=== PATIENT | male | born 1980 | race Caucasian/White ===

== ENCOUNTER 2016-12-15 14:01 | Emergency (ER) | payer OTHER ==
[~2016-12-15] VITALS: Ht 170.1 cm; Wt 122.5 kg
[~2016-12-15 14:01] MED LIST: ALBUTEROL0.09 MG/A2 INH; COMPAZINE10 MG PO; FLOMAX0.4 MG PO; LOMOTIL 0.025 M1 TA1 PO; MEDROL DOSEPAK4 MG PO; MOTRIN800 MG PO; NAPROSYN500 MG PO; PHENERGAN W/ DE30 ML PO; PREDNICOT10 MG PO; PREDNICOT20 MG PO; ROBITUSSIN DM120 ML PO; TESSALON PERLE200 MG PO; VICODIN 5-3001 EACH PO; ZANTAC150 MG PO; ZITHROMAX Z PA250 MG PO; Zofran4 MG PO
[2016-12-15] MEDS ORDERED: ULTRAM50 MG PO (15:47)
[2016-12-15] MEDS ORDERED: Motrin,Rufen800 MG PO (15:47)
== END 2016-12-15 15:50 | disposition home or self-care (01) ==
LOC: ED 14:01
DX: M25.461 Effusion, right knee (principal)

== ENCOUNTER 2017-06-11 05:38 | Emergency (ER) | payer OTHER ==
[~2017-06-11] VITALS: Ht 172.7 cm; Wt 122.5 kg
[~2017-06-11 05:38] MED LIST changes: +Motrin,Rufen800 MG PO; +ULTRAM50 MG PO
[2017-06-11] MEDS ORDERED: CHLORPROMAZINE25 M1 PO (06:15)
== END 2017-06-11 06:37 | disposition home or self-care (01) ==
LOC: ED 05:38
DX: R06.6 Hiccough (principal); Z88.8 Allergy status to other drugs, medicaments and biological substances

== ENCOUNTER 2019-06-05 23:53 | Emergency (ER) | payer OTHER ==
[~2019-06-05] VITALS: Ht 177.8 cm; Wt 122.5 kg
[~2019-06-05 23:53] MED LIST changes: +CHLORPROMAZINE25 M1 PO
[2019-06-05] MEDS ORDERED: PANTOPRAZOLE SO40 MG PO (23:56)
[2019-06-05] MEDS ORDERED: KETOROLAC10 MG PO (23:57)
[2019-06-05] MEDS ORDERED: NORCO 7.5-3251 EACH PO (23:57)
[2019-06-06 00:30] LABS: BASO % 0.5 % (0.0-1.0); EOS # 0.2 10*3/uL (0.0-0.4); EOS % 2.2 % (1.0-4.0); HEMOGLOBIN 12.7 g/dl (14.0-18.0); LYMPH % 22.8 % (27.0-41.0); MEAN CELL VOLUME 85.8 fl (80.0-94.0); MEAN CORPUSCULAR HGB 28.7 pg (27.0-31.0); MEAN CORPUSCULAR HGB CONC 33.4 g/dl (33.0-37.0); MEAN PLATELET VOLUME 9.5 fl (9.6-12.3); MONO # 0.9 10*3/uL (0.1-1.0); MONO % 10.7 % (3.0-9.0); NEUT # 5.4 10*3/uL (2.3-7.9); NEUT % 63.1 % (47.0-73.0); PLATELET COUNT AUTOMATED 194 10*3/uL (130-400); RED BLOOD COUNT 4.43 10*6/uL (4.50-5.90); RED CELL DISTRI WIDTH 12.3 % (0-14.5); WHITE BLOOD COUNT 8.6 10*3/uL (4.8-10.8)
[2019-06-06 00:31] LABS: BILIRUBIN 1+ (NEGATIVE); BLOOD 3+ (NEGATIVE); CLARITY CLOUDY (CLEAR); COLOR YELLOW (YELLOW); GLUCOSE NEGATIVE (NEGATIVE); KETONE NEGATIVE (NEGATIVE); LEUKO ESTERASE TRACE (NEGATIVE); NITRITE NEGATIVE (NEGATIVE); PH 5.5 (5.0-9.0); SPECIFIC GRAVITY 1.025 (1.005-1.030); UROBILINOGEN 0.2 E.U./dl (0.2-1.0)
[2019-06-06 00:37] LABS: BACTERIA 1+; RBC TNTC rbc/hpf (0-2); WBC 41-50 wbc/hpf (0-5)
[2019-06-06 00:46] LABS: ALBUMIN 3.4 gm/dl (3.1-4.5); CREATININE 1.91 mg/dL (0.70-1.30); POTASSIUM 3.6 mmol/L (3.5-5.1); TOTAL PROTEIN 7.6 gm/dL (6.4-8.2)
== END 2019-06-06 02:10 | disposition short-term general hospital (02) ==
LOC: ED 23:53
PROVIDERS: Physician Assistant
DX: N17.9 Acute kidney failure, unspecified (principal); N39.0 Urinary tract infection, site not specified; N20.0 Calculus of kidney; Z79.899 Other long term (current) drug therapy

== ENCOUNTER → 2019-07-18 | Outpatient (CLI) | payer OTHER ==
[~2019-07-18] MED LIST changes: +KETOROLAC10 MG PO; +NORCO 7.5-3251 EACH PO; +PANTOPRAZOLE SO40 MG PO
[2019-07-18 09:16] LABS: BASO # 0.1 10*3/uL (0.0-0.1); BASO % 0.7 % (0.0-1.0); EOS # 0.2 10*3/uL (0.0-0.4); EOS % 2.1 % (1.0-4.0); HEMOGLOBIN 15.1 g/dl (14.0-18.0); LYMPH % 24.4 % (27.0-41.0); MEAN CELL VOLUME 84.7 fl (80.0-94.0); MEAN CORPUSCULAR HGB 27.8 pg (27.0-31.0); MEAN CORPUSCULAR HGB CONC 32.8 g/dl (33.0-37.0); MONO # 0.7 10*3/uL (0.1-1.0); NEUT # 5.2 10*3/uL (2.3-7.9); NEUT % 63.2 % (47.0-73.0); PLATELET COUNT AUTOMATED 237 10*3/uL (130-400); RED BLOOD COUNT 5.43 10*6/uL (4.50-5.90); WHITE BLOOD COUNT 8.2 10*3/uL (4.8-10.8)
[2019-07-18 09:59] LABS: ALBUMIN 4.3 gm/dl (3.1-4.5); BUN 18 mg/dl (7-24); CHLORIDE 104 mmol/L (98-107); CREATININE 1.29 mg/dL (0.70-1.30); POTASSIUM 3.9 mmol/L (3.5-5.1); SGOT/AST 29 IU/L (3-35); SGPT/ALT 47 U/L (12-78); SODIUM 140 mmol/L (136-145); TOTAL PROTEIN 8.4 gm/dL (6.4-8.2)
[2019-07-18 10:00] LABS: ALKALINE PHOSPHATASE 70 U/L (45-117); T3 UPTAKE 36 % (31-39); THYROXINE (T4) TOTAL 8.4 ug/dl (4.5-12.1)
== END | disposition home or self-care (01) ==
LOC: LAB 07:45 → US 12:30
PROVIDERS: Urology
DX: N20.0 Calculus of kidney (principal)

== ENCOUNTER → 2019-07-20 | Outpatient (CLI) | payer OTHER ==
[2019-07-29 18:02] LABS: BUSHITE 1.21 ratio (0.00-3.00); CALCIUM, URINE 12.9 mg/dL (Not Estab.); CALCIUM, URINE 177.4 mg/24 hr (100.0-300.0); CITRIC ACID (CITRATE) 369 mg/24 hr (320-1240); CREATININE, URINE 188.7 mg/dL (Not Estab.); CREATININE, URINE 2594.6 mg/24 hr (1000.0-2000.0); MAGNESIUM, URINE 6.6 mg/dL (Not Estab.); MONOSODIUM URATE 10.45 ratio (0.00-4.00); OSMOLALITY, URINE 762 (300-900); SODIUM, URINE 178 mmol/L (Not Estab.); SODIUM, URINE 245 (58-337); STRUVITE 0.01 ratio (0.00-1.00); URIC ACID 4.69 ratio (0.00-1.20); pH 24 HR URINE 5.7 (.)
== END | disposition home or self-care (01) ==
LOC: LAB 12:50
PROVIDERS: Urology
DX: N20.0 Calculus of kidney (principal)

== ENCOUNTER → 2019-10-29 | Outpatient (CLI) | payer OTHER, MEDICAID ==
[2019-10-29 12:39] LABS: BASO # 0.1 10*3/uL (0.0-0.1); BASO % 0.6 % (0.0-1.0); EOS # 0.5 10*3/uL (0.0-0.4); EOS % 4.4 % (1.0-4.0); HEMATOCRIT 43.6 % (42.0-52.0); LYMPH # 2.1 10*3/uL (1.3-4.4); LYMPH % 17.9 % (27.0-41.0); MEAN CELL VOLUME 83.8 fl (80.0-94.0); MEAN CORPUSCULAR HGB 28.3 pg (27.0-31.0); MEAN CORPUSCULAR HGB CONC 33.7 g/dl (33.0-37.0); MEAN PLATELET VOLUME 9.6 fl (9.6-12.3); MONO # 1.1 10*3/uL (0.1-1.0); MONO % 9.6 % (3.0-9.0); NEUT # 7.9 10*3/uL (2.3-7.9); NEUT % 67.1 % (47.0-73.0); PLATELET COUNT AUTOMATED 275 10*3/uL (130-400); RED CELL DISTRI WIDTH 12.7 % (0-14.5); WHITE BLOOD COUNT 11.7 10*3/uL (4.8-10.8)
[2019-10-29 13:08] LABS: ALKALINE PHOSPHATASE 86 U/L (45-117); BUN 12 mg/dl (7-24); CHLORIDE 105 mmol/L (98-107); CREATININE 1.25 mg/dL (0.70-1.30); POTASSIUM 3.7 mmol/L (3.5-5.1); SGOT/AST 18 IU/L (3-35); SGPT/ALT 41 U/L (12-78); SODIUM 139 mmol/L (136-145); TOTAL PROTEIN 8.2 gm/dL (6.4-8.2); URIC ACID 9.1 mg/dL (3.5-7.2)
== END ==
LOC: LAB 12:17
PROVIDERS: Family Medicine
DX: M25.461 Effusion, right knee (principal)

== ENCOUNTER → 2024-02-15 | Outpatient (CLI) | payer OTHER ==
[2024-02-15 14:24] LABS: BASO # 0.1 10*3/uL (0.0-0.1); BASO % 0.8 % (0.0-1.0); EOS # 0.2 10*3/uL (0.0-0.4); EOS % 1.9 % (1.0-4.0); HEMATOCRIT 42.8 % (42.0-52.0); LYMPH # 2.2 10*3/uL (1.3-4.4); LYMPH % 24.1 % (27.0-41.0); MEAN CELL VOLUME 86.5 fl (80.0-94.0); MEAN CORPUSCULAR HGB 29.3 pg (27.0-31.0); MEAN CORPUSCULAR HGB CONC 33.9 g/dl (33.0-37.0); MEAN PLATELET VOLUME 9.3 fl (9.6-12.3); MONO # 0.8 10*3/uL (0.1-1.0); MONO % 8.2 % (3.0-9.0); NEUT % 64.6 % (47.0-73.0); PLATELET COUNT AUTOMATED 224 10*3/uL (130-400); RED BLOOD COUNT 4.95 10*6/uL (4.50-5.90); RED CELL DISTRI WIDTH 12.5 % (0-14.5); RETICULOCYTE % 1.76 % (0.50-2.50); WHITE BLOOD COUNT 9.3 10*3/uL (4.8-10.8)
[2024-02-15 14:46] LABS: URINE CREATININE RANDOM 243.99 mg/dL
[2024-02-15 15:15] LABS: ALKALINE PHOSPHATASE 71 U/L (46-116); BUN 15 mg/dl (9-23); CHLORIDE 103 mmol/L (98-107); POTASSIUM 3.9 mmol/L (3.4-5.1); SGPT/ALT 48 U/L (5-49); URIC ACID 7.9 mg/dL (3.7-9.2)
[2024-02-16 07:07] LABS: TOTAL PROTEIN, SERUM 7.4 g/dL (6.0-8.5)
[2024-02-18 12:07] LABS: A/G RATIO 1.5 (0.7-1.7); ALBUMIN 4.4 g/dL (2.9-4.4); ALPHA-1-GLOBULIN 0.2 g/dL (0.0-0.4); ALPHA-2-GLOBULIN 0.7 g/dL (0.4-1.0); GAMMA GLOBULIN 1.1 g/dL (0.4-1.8)
== END | disposition home or self-care (01) ==
LOC: LAB 13:52
PROVIDERS: ATTEND Student in an Organized Health Care Education/Training Program
DX: M10.9 Gout, unspecified (principal); E80.6 Other disorders of bilirubin metabolism; N18.9 Chronic kidney disease, unspecified

== ENCOUNTER → 2024-11-18 | Outpatient (CLI) | payer BC | END | disposition home or self-care (01) | LOC: RAD 08:56 | PROVIDERS: ATTEND Family Medicine | DX: R05.3 Chronic cough (principal) ==

== ENCOUNTER 2024-11-28 21:05 | Emergency (ER) | payer BC ==
[~2024-11-28] VITALS: Ht 177.8 cm; Wt 117.9 kg
[2024-11-28] MEDS ORDERED: Bacitracin Zinc 14 GM TUBE T ONE (22:20)
== END 2024-11-28 22:26 | disposition home or self-care (01) ==
LOC: ED 21:05
DX: S61.012A Laceration without foreign body of left thumb without damage to nail, initial encounter (principal); Z79.899 Other long term (current) drug therapy; Z91.041 Radiographic dye allergy status; W26.8XXA Contact with other sharp object(s), not elsewhere classified, initial encounter; Y93.89 Activity, other specified; Y92.89 Other specified places as the place of occurrence of the external cause; Y99.8 Other external cause status

== ENCOUNTER → 2025-02-06 | Outpatient (CLI) | payer BC ==
[~2025-02-06] MED LIST changes: +Iodixanol 320 100 ML VIAL IV ONE; +Iodixanol 320 100 ML VIAL ONE
== END | disposition home or self-care (01) ==
LOC: CT 00:32
PROVIDERS: ATTEND Internal Medicine
DX: R59.0 Localized enlarged lymph nodes (principal); R91.1 Solitary pulmonary nodule; Z90.6 Acquired absence of other parts of urinary tract

== ENCOUNTER 2025-04-10 20:45 | Emergency (ER) | payer BC ==
[~2025-04-10] VITALS: Ht 177.8 cm; Wt 122.5 kg
[~2025-04-10 20:45] MED LIST changes: -Iodixanol 320 100 ML VIAL IV ONE; -Iodixanol 320 100 ML VIAL ONE
[2025-04-10] MEDS ORDERED: AMOX-CLAV 875-1 EACH PO (21:08)
[2025-04-10] MEDS ORDERED: Amoxicillin/Clavulanate Pota 875 MG TAB PO ONE (21:10)
== END 2025-04-10 21:17 | disposition home or self-care (01) ==
LOC: ED 20:45
DX: J02.8 Acute pharyngitis due to other specified organisms (principal); Z91.041 Radiographic dye allergy status; Z79.899 Other long term (current) drug therapy

== ENCOUNTER 2025-05-16 02:27 | Emergency (ER) | payer BC ==
[~2025-05-16] VITALS: Ht 177.8 cm; Wt 122.5 kg
[~2025-05-16 02:27] MED LIST changes: +AMOX-CLAV 875-1 EACH PO
[2025-05-16] MEDS ORDERED: ALLOPURINOL300 MG PO (02:40)
[2025-05-16] MEDS ORDERED: Ondansetron Hydrochloride 4 MG/2 ML VIAL IV ONE (03:15)
[2025-05-16] MEDS ORDERED: SODIUM CHLORIDE 0.9% 1,000 ML IV ONE (03:20)
[2025-05-16 03:33] LABS: BASO # 0.1 10*3/uL (0.0-0.1); BASO % 0.8 % (0.0-1.0); EOS # 0.2 10*3/uL (0.0-0.4); EOS % 2.8 % (1.0-4.0); MEAN CELL VOLUME 86.2 fl (80.0-94.0); MEAN CORPUSCULAR HGB 29.4 pg (27.0-31.0); MEAN PLATELET VOLUME 9.1 fl (9.6-12.3); MONO # 0.8 10*3/uL (0.1-1.0); MONO % 9.6 % (3.0-9.0); NEUT # 5.1 10*3/uL (2.3-7.9); NEUT % 60.7 % (47.0-73.0); NUCLEATED RED BLOOD CELL 0.0 % (0.0-0.0); NUCLEATED RED BLOOD CELL 0.0 10*3/uL (0.0-0.0); PLATELET COUNT AUTOMATED 228 10*3/uL (130-400); RED CELL DISTRI WIDTH 12.7 % (0-14.5)
[2025-05-16 03:52] LABS: BUN 18 mg/dl (9-23)
[2025-05-16 05:40] LABS: BILIRUBIN Negative (Negative); BLOOD 3+ (Negative); CLARITY Cloudy (Clear); COLOR Dark Yellow (Yellow); KETONE Trace (Negative); LEUKO ESTERASE Negative (Negative); NITRITE Negative (Negative); PH 5.5 (4.5-8.0); SPECIFIC GRAVITY 1.025 (1.001-1.030); UROBILINOGEN 1.0 E.U./dl (0.0-1.0)
[2025-05-16 05:59] LABS: RBC TNTC rbc/hpf (0-2)
[2025-05-16 06:00] LABS: BACTERIA 2+; MUCOUS 3+
[2025-05-16] MEDS ORDERED: PERCOCET 5-3251 EACH PO (06:20)
== END 2025-05-16 06:36 | disposition home or self-care (01) ==
LOC: ED 02:27
PROVIDERS: Emergency Medicine
DX: N13.2 Hydronephrosis with renal and ureteral calculous obstruction (principal); N50.811 Right testicular pain; Z91.041 Radiographic dye allergy status; Z79.899 Other long term (current) drug therapy